=== PATIENT | male | born 1960 | race Caucasian/White ===

== ENCOUNTER 2021-05-10 15:49 | Outpatient (CLI) | payer OTHER | END 2021-05-10 15:50 | disposition short-term general hospital (02) | LOC: EMS 15:49 | DX: R47.02 Dysphasia (principal); R41.89 Other symptoms and signs involving cognitive functions and awareness; R53.1 Weakness; R00.1 Bradycardia, unspecified | CPT/HCPCS: A0425; A0429 ==